=== PATIENT | male | born 1955 | race Caucasian/White ===

== ENCOUNTER 2020-05-24 11:59 | Outpatient (REF) | payer OTHER, SELFPAY ==
[2020-05-24 13:53] LABS: MANUAL DIFF FLAG NO
[2020-05-24 14:00] LABS: Basophils Absolute Auto 0.1 X10*3/uL (0.0-0.2); Basophils Percent Auto 0.7 % (0-2); Eosinophils Absolute Auto 0.2 X10*3/uL (0.0-0.4); Eosinophils Percent Auto 1.9 % (0-4); Hematocrit 44.6 % (42-52); Imm Gran Abs Auto 0.03 X10*3/uL (0.00-0.03); Imm Gran Pct Auto 0.3 % (0.0-0.4); Lymphocytes Absolute Auto 2.1 X10*3/uL (1.2-4.9); Mean Corpuscular HGB Conc 33.6 g/dl (31.0-36.0); Mean Corpuscular Hemoglobin 32.5 pg (27.0-33.0); Mean Corpuscular Volume 96.7 fL (80-98); Mean Platelet Volume 9.7 fL (9.4-12.4); Monocytes Absolute Auto 1.2 X10*3/uL (0.1-1.2); Monocytes Percent Auto 12.7 % (2-11); Neutrophils Percent Auto 62.4 % (45-73); Platelet Count 312 X10*3/uL (160-400); Red Blood Count 4.61 X10*6/uL (4.60-5.80); Red Cell Distribution Width 12.6 % (11.0-16.0); White Blood Count 9.6 X10*3/uL (4.8-10.8)
[2020-05-24 15:19] LABS: Alanine Aminotransferase 24 U/L (0-40); Albumin Level 4.9 g/dL (3.5-5.0); Alkaline Phosphatase 78 U/L (39-117); Anion Gap 16 (12-20); Aspartate Amino Transferase 25 U/L (5-37); Bilirubin Total 0.7 mg/dL (0.0-1.0); Blood Urea Nitrogen 11 mg/dL (9-16); Calcium 9.7 mg/dL (8.4-10.2); Carbon Dioxide 27 mmol/L (22-29); Chloride 101 mmol/L (96-108); Cholesterol 258 mg/dL; Estimated Glomerular Filt Rate > 60; Glucose Fasting 100 mg/dL (60-99); HDL Cholesterol 81 mg/dL; LDL Cholesterol Calculated 154 mg/dl; Potassium 4.9 mmol/l (3.3-5.1); Sodium 139 mmol/L (135-145); Total Protein 8.1 g/dL (6.5-8.0); Triglycerides 119 mg/dL
[2020-05-24 16:16] LABS: Prostate Specific Antigen Scr 5.69 ng/mL (<0.05-4.0)
== END 2020-05-24 12:00 | disposition home or self-care (01) ==
LOC: HO.10HDL 11:59
PROVIDERS: Visit Provider Internal Medicine
DX: J44.9 Chronic obstructive pulmonary disease, unspecified (principal); I10 Essential (primary) hypertension; R35.1 Nocturia; B19.20 Unspecified viral hepatitis C without hepatic coma; Z12.5 Encounter for screening for malignant neoplasm of prostate
CPT/HCPCS: 36415; 80053; 80061; 84153; 85025; 87522; U0003

== ENCOUNTER 2020-06-04 09:50 | Outpatient (REF) | payer OTHER, SELFPAY ==
[2020-06-04 15:03] LABS: Cholesterol 220 mg/dL; HDL Cholesterol 70 mg/dL; LDL Cholesterol Calculated 130 mg/dl; Triglycerides 103 mg/dL
== END 2020-06-04 09:51 | disposition home or self-care (01) ==
LOC: HO.10HDL 09:50
PROVIDERS: Visit Provider Internal Medicine
DX: E78.00 Pure hypercholesterolemia, unspecified (principal)
CPT/HCPCS: 36415; 80061

== ENCOUNTER → 2020-07-09 14:47 | Outpatient (BNVA) | payer OTHER, SELFPAY | PROVIDERS: PCP Internal Medicine; Visit Provider Urology | DX: R97.20 Elevated prostate specific antigen [PSA] (principal); N40.1 Benign prostatic hyperplasia with lower urinary tract symptoms; N13.8 Other obstructive and reflux uropathy | CPT/HCPCS: 99202 ==

== ENCOUNTER 2020-07-26 13:48 | Outpatient (REF) | payer OTHER, SELFPAY ==
[2020-07-26 14:38] LABS: Influenza A PCR NEGATIVE (Negative); Influenza B PCR NEGATIVE (Negative); Resp Syncy Virus RNA Qual PCR NEGATIVE (Negative); SARS COV2 PCR INHOUSE NEGATIVE (Negative)
== END 2020-07-26 13:49 | disposition home or self-care (01) ==
LOC: HO.LNP 13:48
PROVIDERS: Visit Provider Internal Medicine
DX: Z20.822 Contact with and (suspected) exposure to COVID-19 (principal)
CPT/HCPCS: 0241U

== ENCOUNTER 2020-10-30 10:45 | Outpatient (REF) | payer OTHER, SELFPAY ==
[2020-10-30 12:24] LABS: PSA,Total (Free>4and<10) 4.14 ng/mL (0.00-4.00)
[2020-10-31 10:36] LABS: Free Prostate Spec Ag 0.5 ng/mL; Percent Free Prostate Spec Ag 13 % (calc) (>25); Prostate Specific Ag Total 3.8 ng/mL (< OR = 4.0)
== END 2020-10-30 10:46 | disposition home or self-care (01) ==
LOC: HO.LAB 10:45
PROVIDERS: PCP Internal Medicine; Visit Provider Urology
DX: Z12.5 Encounter for screening for malignant neoplasm of prostate (principal); N13.8 Other obstructive and reflux uropathy; N40.1 Benign prostatic hyperplasia with lower urinary tract symptoms; R97.20 Elevated prostate specific antigen [PSA]
CPT/HCPCS: 36415; 84153; 84154

== ENCOUNTER → 2020-11-06 14:42 | Outpatient (BNVA) | payer OTHER, SELFPAY | PROVIDERS: PCP Internal Medicine; Visit Provider Urology | DX: R97.20 Elevated prostate specific antigen [PSA] (principal); N40.1 Benign prostatic hyperplasia with lower urinary tract symptoms; N13.8 Other obstructive and reflux uropathy; I10 Essential (primary) hypertension; I87.8 Other specified disorders of veins | CPT/HCPCS: 99212 ==

== ENCOUNTER 2021-01-27 08:56 | Outpatient (REF) | payer MEDICARE, MEDICAID, SELFPAY ==
[2021-01-27 11:44] LABS: PSA,Total (Free>4and<10) 3.71 ng/mL (0.00-4.00)
== END 2021-01-27 08:57 | disposition home or self-care (01) ==
LOC: HO.10HDL 08:56
PROVIDERS: Visit Provider Urology
DX: R97.20 Elevated prostate specific antigen [PSA] (principal)
CPT/HCPCS: 36415; 84153

== ENCOUNTER 2021-02-26 12:27 | Outpatient (REF) | payer MEDICARE, MEDICAID, SELFPAY ==
[2021-02-26 14:38] LABS: PSA,Total (Free>4and<10) 3.99 ng/mL (0.00-4.00)
== END 2021-02-26 12:28 | disposition home or self-care (01) ==
LOC: HO.10HDL 12:27
PROVIDERS: Visit Provider Urology
DX: R97.20 Elevated prostate specific antigen [PSA] (principal); Z12.5 Encounter for screening for malignant neoplasm of prostate
CPT/HCPCS: 36415; 84153

== ENCOUNTER → 2021-03-05 14:57 | Outpatient (BNVA) | payer OTHER, MEDICAID, SELFPAY | PROVIDERS: Visit Provider Urology | DX: N40.1 Benign prostatic hyperplasia with lower urinary tract symptoms (principal); N13.8 Other obstructive and reflux uropathy; R97.20 Elevated prostate specific antigen [PSA] | CPT/HCPCS: 99212 ==

== ENCOUNTER 2021-09-01 12:46 | Outpatient (REF) | payer MEDICARE, MEDICAID, SELFPAY ==
[2021-09-01 14:25] LABS: PSA,Total (Free>4and<10) 4.24 ng/mL (0.00-4.00)
[2021-09-02 11:07] LABS: Free Prostate Spec Ag 0.9 ng/mL; Percent Free Prostate Spec Ag 20 % (calc) (>25); Prostate Specific Ag Total 4.5 ng/mL (< OR = 4.0)
== END 2021-09-01 12:47 | disposition home or self-care (01) ==
LOC: HO.LAB 12:46
PROVIDERS: PCP Internal Medicine; Visit Provider Urology
DX: Z12.5 Encounter for screening for malignant neoplasm of prostate (principal); N40.1 Benign prostatic hyperplasia with lower urinary tract symptoms; N13.8 Other obstructive and reflux uropathy
CPT/HCPCS: 36415; 84153; 84154

== ENCOUNTER → 2021-09-09 14:59 | Outpatient (BNVA) | payer OTHER, SELFPAY | PROVIDERS: PCP Internal Medicine; Visit Provider Urology | DX: Z13.89 Encounter for screening for other disorder (principal) ==

== ENCOUNTER 2022-03-03 13:29 | Outpatient (REF) | payer MEDICARE, MEDICAID, SELFPAY ==
[2022-03-03 15:24] LABS: PSA,Total (Free>4and<10) 4.14 ng/mL (0.00-4.00)
[2022-03-05 11:07] LABS: Free Prostate Spec Ag 0.2 ng/mL; Percent Free Prostate Spec Ag 10 % (calc) (>25); Prostate Specific Ag Total 2.1 ng/mL (< OR = 4.0)
== END 2022-03-03 13:30 | disposition home or self-care (01) ==
LOC: HO.LAB 13:29
PROVIDERS: PCP Internal Medicine; Visit Provider Urology
DX: Z12.5 Encounter for screening for malignant neoplasm of prostate (principal); N13.8 Other obstructive and reflux uropathy; N40.1 Benign prostatic hyperplasia with lower urinary tract symptoms
CPT/HCPCS: 36415; 84153; 84154

== ENCOUNTER → 2022-03-10 10:45 | Outpatient (BNVA) | payer MEDICARE, MEDICAID, SELFPAY | PROVIDERS: PCP Internal Medicine; Visit Provider Urology | DX: R97.20 Elevated prostate specific antigen [PSA] (principal); N40.1 Benign prostatic hyperplasia with lower urinary tract symptoms; N13.8 Other obstructive and reflux uropathy | CPT/HCPCS: 51798; 99212 ==

== ENCOUNTER 2022-09-02 13:42 | Outpatient (REF) | payer MEDICARE, MEDICAID, SELFPAY ==
[2022-09-02 15:31] LABS: Prostate Specific Antigen 6.28 ng/mL (<0.05-4.0)
== END 2022-09-02 13:43 | disposition home or self-care (01) ==
LOC: HO.LAB 13:42
PROVIDERS: PCP Internal Medicine; Visit Provider Urology
DX: R97.20 Elevated prostate specific antigen [PSA] (principal); Z12.5 Encounter for screening for malignant neoplasm of prostate
CPT/HCPCS: 36415; 84153

== ENCOUNTER → 2022-09-09 14:21 | Outpatient (BNVA) | payer MEDICARE, MEDICAID, SELFPAY | PROVIDERS: PCP Internal Medicine; Visit Provider Urology | DX: N40.1 Benign prostatic hyperplasia with lower urinary tract symptoms (principal); N13.8 Other obstructive and reflux uropathy; R97.20 Elevated prostate specific antigen [PSA] | CPT/HCPCS: 99212 ==

== ENCOUNTER 2022-10-22 07:23 | Outpatient (REF) | payer MEDICARE, MEDICAID, SELFPAY ==
[2022-10-22 07:42] VITALS: BMI 22.4
[2022-10-22 07:43] VITALS: BP 133/80; PULSE 93; RESP 16; TEMP 36.3; O2SAT 99
--- NOTE | 2022-10-22 08:33 | W.PM.OPN ---
Operative Note Operative Note Date of Service: 10/22/22 Narrative: Preoperative diagnosis: Elevated PSA Postoperative diagnosis: Elevated PSA Procedure: 1. transrectal ultrasound measurement of prostate 2. transrectal ultrasound-guided pudendal nerve block 3. transrectal ultrasound-guided prostate biopsy 12 core Surgeon: Dr. Noble Polk Anesthetic: Local Indications for procedure: Elevated PSA 6.2 Procedure: After informed consent was verified, the patient was brought into the procedure area and lay left-hand side down on the table. Patient identity confirmed. Perioperative antibiotics confirmed. Safety pause time out performed. OMAYRA performed to dilate rectal sphincter Iodine 10cc with Gel was placed per rectum Ultrasound probe was placed per rectum The prostate was measured in 3 dimensions Total volume equals 25 gm No cystic structures were noted No calcifications were noted at the surgical margin The prostate was otherwise homogeneous in nature An ultrasound-guided pudendal nerve block was performed using 10 cc of 1% lidocaine. 8 cc was placed at the base and 2 cc of the apex. A 12 core biopsy was performed with 6 cores each side. Two cores were taken at the apex, mid and base. Cores were spaced between lateral and medial. He tolerated the procedure well. Was able to ambulate to bathroom after 5 minutes. Printed instructions regarding antibiotic use and common side effects such as low-grade temperature, potential infection and bleeding were given Pathology: 12 core prostate biopsy.
[2022-10-22 08:35] VITALS: BP 137/73; PULSE 96; RESP 16; O2SAT 100
== END 2022-10-22 07:24 | disposition home or self-care (01) ==
LOC: HO.MS 07:23
PROVIDERS: Visit Provider Urology
PROC: (CPT 55700; principal; 2022-10-22 08:00)
DX: C61 Malignant neoplasm of prostate (principal); N42.32 Atypical small acinar proliferation of prostate; R97.20 Elevated prostate specific antigen [PSA]
CPT/HCPCS: 55700; 76942; 88305; 88344

== ENCOUNTER → 2022-10-30 09:19 | Outpatient (BNVA) | payer MEDICARE, MEDICAID, SELFPAY | PROVIDERS: PCP Internal Medicine; Visit Provider Urology | DX: C61 Malignant neoplasm of prostate (principal) | CPT/HCPCS: Q3014 ==

== ENCOUNTER 2022-11-30 15:11 | Emergency (ER) | payer MEDICARE, MEDICAID, SELFPAY ==
[2022-11-30 15:17] VITALS: BP 142/64; PULSE 68; O2SAT 97
[2022-11-30 16:27] VITALS: BP 152/93; PULSE 112; RESP 20; TEMP 36.6; O2SAT 96; BMI 22.4
--- NOTE | 2022-11-30 16:30 | ECG_ITS ---
Test Reason : SYNCOPE Blood Pressure : / mmHG Vent. Rate : 110 BPM Atrial Rate : 110 BPM P-R Int : 136 ms QRS Dur : 076 ms QT Int : 324 ms P-R-T Axes : 000 013 022 degrees QTc Int : 438 ms Sinus tachycardia Otherwise normal ECG When compared with ECG of 17-JAN-2005 09:13, Nonspecific T wave abnormality no longer evident in Lateral leads Referred By: Generic ED Physician Electronically Signed By:Jesús Dubon
--- NOTE | 2022-11-30 16:33 | ED_ITS ---
HPI - General Adult General Chief complaint: Dizziness Stated complaint: mechanical fall, no headstrike, per ems Related Data Home Medications Medication Instructions Recorded Confirmed lisinopril 20 mg tablet 20 mg PO DAILY 07/09/20 omeprazole 20 mg capsule,delayed mg PO 03/05/22 03/10/22 release Previous Rx's Medication Instructions Recorded finasteride 5 mg tablet 5 mg PO DAILY 90 days #90 tabs 06/26/22 Allergies Allergy/AdvReac Type Severity Reaction Status Date / Time No Known Allergies Allergy Verified 10/30/22 09:19 [facility] Past Medical History Medical History Cellulitis HTN (hypertension) Venous stasis ulcer of ankle Surgical History History of appendectomy History of colonoscopy Social History Social History Advance Directives: No Advance Directives Information Provided: Yes Physical Exam ED Vital Signs: Vital Signs - 24 hr 11/30/22 16:27 Temperature 98 F Pulse Rate 112 H Respiratory Rate 20 Blood Pressure 152/93 H Pulse Oximetry 96 Oxygen Delivery Method Room Air BMI result Body Mass Index 22.4 Course Course Course Narrative: This is an RME: Additional HPI, ROS, PE not included below will be deferred to primary provider. 66-year-old male presenting to the emergency department via EMS, presenting to the ER for evaluation of presyncopal episode. Pt received shingles shot this morning, and believes that this is what caused his symptoms. Mildly hypertensive at 152/93 and tachycardic at 112bpm, EKG ordered. Pt eloped just after getting EKG performed, prior to full evaluation by me or primary provider. Medical Decision Making Lab Data 11/30/22 16:52 11/30/22 16:52 Labs: Lab Results 11/30/22 11/30/22 11/30/22 Range/Units 16:52 16:52 16:52 WBC 13.0 H (4.8-10.8) X10*3/uL RBC 4.29 L (4.60-5.80) X10*6/uL Hgb 14.3 (14.0-18.0) g/dl Hct 41.0 L (42.0-52.0) % MCV 95.6 (80.0-98.0) fL MCH 33.3 H (27.0-33.0) pg MCHC 34.9 (31.0-36.0) g/dl RDW 13.1 (11.0-16.0) % Plt Count 240 (160-400) X10*3/uL MPV 8.9 L (9.4-12.4) fL Absolute Nucleated RBC 0.000 (0.0-0.012) X10*3/uL Nucleated RBC % (auto) 0.0 (0.0-0.2) /100WBC Sodium 136 (135-145) mmol/L Potassium 4.9 (3.3-5.1) mmol/L Chloride 103 (96-108) mmol/L Carbon Dioxide 19 L (22-29) mmol/L Anion Gap 19 (12-20) BUN 13 (9-16) mg/dL Creatinine 1.21 (0.5-1.4) mg/dL Estim Creat Clear Calc 63.5 Estimated GFR 60 Random Glucose 128 H (60-115) mg/dL Calcium 9.1 D (8.4-10.2) mg/dL Total Bilirubin 0.7 (0.0-1.0) mg/dL AST 51 H (5-37) U/L ALT 29 (0-40) U/L Alkaline Phosphatase 65 (39-117) U/L Troponin I High Sens 5.5 (<3.5-35.0) ng/L Total Protein 7.6 (6.5-8.0) g/dL Albumin 4.4 (3.5-5.0) g/dL Discharge Plan Discharge Clinical Impression: Pre-syncope Patient Disposition: Elopement Prescriptions: No Action finasteride 5 mg tablet 5 mg PO DAILY 90 Days Qty: 90 1RF lisinopril 20 mg tablet 20 mg PO DAILY omeprazole 20 mg capsule,delayed release(DR/EC) PO Discharge Date/Time: 11/30/22 22:35
[2022-11-30 17:03] LABS: Hemoglobin 14.3 g/dl (14.0-18.0); Mean Corpuscular HGB Conc 34.9 g/dl (31.0-36.0); Mean Corpuscular Hemoglobin 33.3 pg (27.0-33.0); Mean Corpuscular Volume 95.6 fL (80.0-98.0); Mean Platelet Volume 8.9 fL (9.4-12.4); Platelet Count 240 X10*3/uL (160-400); Red Blood Count 4.29 X10*6/uL (4.60-5.80); Red Cell Distribution Width 13.1 % (11.0-16.0)
[2022-11-30 17:31] LABS: Alanine Aminotransferase 29 U/L (0-40); Albumin Level 4.4 g/dL (3.5-5.0); Alkaline Phosphatase 65 U/L (39-117); Anion Gap 19 (12-20); Aspartate Amino Transferase 51 U/L (5-37); Bilirubin Total 0.7 mg/dL (0.0-1.0); Blood Urea Nitrogen 13 mg/dL (9-16); Calcium 9.1 mg/dL (8.4-10.2); Carbon Dioxide 19 mmol/L (22-29); Chloride 103 mmol/L (96-108); Creatinine Clr Calc Pharmacy 63.5; Estimated Glomerular Filt Rate 60; Glucose Random 128 mg/dL (60-115); Potassium 4.9 mmol/L (3.3-5.1); Sodium 136 mmol/L (135-145); Total Protein 7.6 g/dL (6.5-8.0)
[2022-11-30 17:38] LABS: Troponin-I High Sensitivity 5.5 ng/L (<3.5-35.0)
== END 2022-11-30 22:35 | disposition left against medical advice (07) ==
PROVIDERS: Emergency Provider Emergency Medicine; PCP Internal Medicine
DX: R55 Syncope and collapse (principal); I10 Essential (primary) hypertension
CPT/HCPCS: 36415; 80053; 84484; 85027; 93005; 99283

== ENCOUNTER → 2022-11-30 16:30 | Outpatient (BNV) | payer MEDICARE, MEDICAID, SELFPAY | PROVIDERS: Emergency Provider Emergency Medicine; PCP Internal Medicine; Visit Provider Internal Medicine Cardiovascular Disease | DX: R00.0 Tachycardia, unspecified (principal) | CPT/HCPCS: 93010 ==

== ENCOUNTER 2023-01-14 11:03 | Outpatient (AMB) | payer MEDICARE, MEDICAID, SELFPAY ==
--- NOTE | 2023-01-14 11:04 | MHC.OFFVIS ---
Intake Intake Visit Reasons: MRI (SET) Intake Note: Patient is present for Telephone MRI Urology Med: Finasteride Antibiotic Allergy: None Blood Thinner: None Pharmacy: [facility] Allergies No Known Allergies Allergy (Verified 10/30/22 09:19) HPI HPI Comments History of Present Illness Details Hi is a pleasant male. He is a patient of Dr. Mckeon. 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, low volume, clinically localized Prostate cancer was diagnosed Dr Polk Diagnosis was reached by - needle biopsy for elevated PSA 6.2 - 25 g 12 Core biopsy Positive Biopsies: 3 Negative Biopsies: 9 - (%) Positive: 100/1200 Locations:Battiest score: 3+4=7 (left base lateral) 20%, 3+3=6 (right apex lateral 30%; right apex medial 50%) Associated Features: LVI: RIK: Seminal Vesicles: - all negative TNM Classification of Malignant Tumours (TNM) - T1c Staging Imaging - 12/06 MRI 1.4 cm PI-RADS 2, no high risk disease Family History: Adopted unknown Associated conditions include lower urinary tract symptoms Therapeutic plan: Finasteride, 4 month follow-up PSA [facility] Medical History Cellulitis HTN (hypertension) Venous stasis ulcer of ankle Surgical History History of appendectomy History of colonoscopy Review of Systems Const All systems reviewed & are unremarkable except as noted in HPI and below Reports no additional complaints Resp Reports no additional complaints GI Reports no additional complaints Reports as per HPI Musc Reports no additional complaints Physical Exam Telemedicine evaluation Appropriate responses Regular breathing rate and rhythm HEENT Head: Yes normal to inspection Ears: hearing grossly normal bilaterally Eyes General: appearance normal, both eyes and all related structures Neck Neck: Yes normal visual inspection Chest Chest palpation & inspection: normal inspection of the chest Resp Effort & Inspection: normal respiratory effort and able to speak in complete sentences Assessment & Plan Assessment & Plan (1) Prostate cancer: Comment: 11/06 Low volume Battiest 3 + 4 Code(s): C61 - Malignant neoplasm of prostate Plan Four month follow-up PSA Orders: Orders Prostate Specific Antigen 4 Months C61 - Malignant neoplasm of prostate Patient Instructions: Imaging studies, laboratory and physical exam results were discussed and reviewed in detail. No major barriers to patient understanding were identified. An opportunity to ask questions regarding the treatment plan was provided. All questions were answered. The patient expressed understanding and agreement with the above treatment plan. The patient is aware they should contact our office by phone for worsening of their current condition or the appearance of new urologic symptoms. Compliance is encouraged with any medications and followup testing that is ordered. It is a privilege to participate in the urologic care of your patient. If you have any questions or concerns regarding treatment for the above conditions, or other urologic issues, please do not hesitate to contact me. The office telephone contact is [phone]. This note is constructed using voice recognition software. While every effort has been made to ensure accuracy hot tamale man errors may have been included. Yours sincerely, Dr Noble Polk MD, [facility] - Urology Providers of Expert, Compassionate Care for the Genitourinary System Telehealth Telehealth Location of provider rendering services: practice address Location of patient: address on file Patient Identification confirmed using: Name, : Yes Telehealth method: video Patient verbally consented to treatment: Yes Patient verbally consented to billing insurance company: Yes Patient informed of any privacy concerns related to visit: Yes Coding Level of Care Code Tele Est Pt Level 3 (55480) Diagnoses Prostate cancer C61
== END 2023-01-14 11:37 | disposition home or self-care (01) ==
LOC: HO.HUSH 11:03
PROVIDERS: PCP Internal Medicine; Visit Provider Urology
DX: C61 Malignant neoplasm of prostate (principal)
CPT/HCPCS: 99213

== ENCOUNTER → 2023-01-14 11:03 | Outpatient (BNVA) | payer MEDICARE, MEDICAID, SELFPAY | PROVIDERS: PCP Internal Medicine; Visit Provider Urology | DX: C61 Malignant neoplasm of prostate (principal) | CPT/HCPCS: Q3014 ==

== ENCOUNTER 2023-04-10 17:10 | Emergency (ER) | payer MEDICARE, SELFPAY ==
--- NOTE | ~2023-04-10 | CT_ITS ---
EXAMINATION: CT HEAD WITHOUT CONTRAST CLINICAL INFORMATION: Headache status-post fall. COMPARISON: None available. TECHNIQUE: Contiguous axial imaging was performed from the skull base to vertex without intravenous administration of contrast. Multiplanar reformatted images are submitted. This CT examination was performed using dose optimization techniques as appropriate, variously including the following: *Automated exposure control *Adjustment of mA and/or kV according to patient size (this includes techniques or standardized protocols for targeted exams where dose is matched to indication/reason for exam; i.e. extremities or head) *Use of iterative reconstruction technique DLP: 1056 mGy-cm (head and cervical spine) FINDINGS: There is no acute intracranial hemorrhage or evidence of territorial infarction. No abnormal mass effect or midline shift is seen. Hannah to white matter differentiation is well preserved. There is very mild patchy low attenuation change in the periventricular white matter spaces. There are atherosclerotic calcifications of the skull base vasculature. The ventricles are normal in size. There is mild generalized sulcal widening, commensurate with advanced age. No extra-axial fluid collections are identified. The calvarium and scalp soft tissues are normal. The middle ear cavity and mastoid air cells are clear. The visualized paranasal sinuses are clear. CT/CT cervical spine wo IV con IMPRESSION: No acute intracranial pathology. EXAMINATION: CT CERVICAL SPINE WITHOUT CONTRAST CLINICAL INFORMATION: Neck pain status-post fall. COMPARISON: None available. TECHNIQUE: Contiguous axial imaging was performed through the cervical spine without intravenous administration of contrast. Multiplanar reformatted images are submitted. This CT examination was performed using dose optimization techniques as appropriate, variously including the following: *Automated exposure control *Adjustment of mA and/or kV according to patient size (this includes techniques or standardized protocols for targeted exams where dose is matched to indication/reason for exam; i.e. extremities or head) *Use of iterative reconstruction technique DLP: As above FINDINGS: Vertebral body heights are normal. At C4-C5 through C7-T1, there is moderately severe degenerative disc disease, with disc space narrowing and vacuum disc phenomenon. No acute fracture or spondylolisthesis is seen. There is multi-level cervical spondylosis and facet arthropathy. The posterior elements are intact. The dens is intact. There is no prevertebral soft tissue swelling. The bilateral lung apices are clear. There are paraseptal emphysematous changes. IMPRESSION: There is multi-level cervical and degenerative disc disease, spondylosis and facet arthropathy. Degenerative disc disease is most pronounced at C4-C5 through C7-T1, where it is marked. No acute fracture or spondylolisthesis is seen. Fleischner guidelines were followed.
[2023-04-10 18:04] VITALS: BP 142/70; BP 142/91; PULSE 101; PULSE 103; RESP 18; TEMP 36.6; O2SAT 100; O2SAT 98; BMI 23.1
--- NOTE | 2023-04-10 18:40 | PC.NURSE ---
Spoke with patient SO and she is concerned about the patient coming home tonight due to patient patient's recent heavy drinking and the fact that he fell yesterday as well as today. SO states that recently the patient has been drinking 15-16 drinks a day and she feels that she would not be able to get him off the ground if he were to fall again. SO also states that Patient took one of her lorazepam on top of drinking tonight. So is also asked to be called if patient is to be staying overnight tonight.
[2023-04-10 19:14] LABS: MANUAL DIFF FLAG NO
[2023-04-10 19:16] LABS: Basophils Absolute Auto 0.1 X10*3/uL (0.0-0.2); Basophils Percent Auto 0.9 % (0-2); Eosinophils Absolute Auto 0.1 X10*3/uL (0.0-0.4); Eosinophils Percent Auto 1.9 % (0-4); Hematocrit 34.7 % (42.0-52.0); Imm Gran Abs Auto 0.01 X10*3/uL (0.00-0.03); Imm Gran Pct Auto 0.2 % (0.0-0.4); Lymphocytes Absolute Auto 1.9 X10*3/uL (1.2-4.9); Lymphocytes Percent Auto 36.2 % (20-40); Mean Corpuscular HGB Conc 34.6 g/dl (31.0-36.0); Mean Corpuscular Hemoglobin 33.1 pg (27.0-33.0); Mean Corpuscular Volume 95.6 fL (80.0-98.0); Mean Platelet Volume 8.6 fL (9.4-12.4); Monocytes Absolute Auto 0.8 X10*3/uL (0.1-1.2); Monocytes Percent Auto 14.6 % (2-11); Neutrophils Absolute Auto 2.4 x10*3/uL (2.0-8.3); Neutrophils Percent Auto 46.2 % (45-73); Platelet Count 162 X10*3/uL (160-400); Red Blood Count 3.63 X10*6/uL (4.60-5.80); White Blood Count 5.3 X10*3/uL (4.8-10.8)
[2023-04-10 19:30] LABS: Alanine Aminotransferase 77 U/L (0-40); Albumin Level 3.9 g/dL (3.5-5.0); Alkaline Phosphatase 60 U/L (39-117); Anion Gap 13 (12-20); Aspartate Amino Transferase 117 U/L (5-37); Bilirubin Direct 0.2 mg/dL (0.0-0.5); Bilirubin Total 0.2 mg/dL (0.0-1.0); Blood Urea Nitrogen 5 mg/dL (9-16); Calcium 8.7 mg/dL (8.4-10.2); Carbon Dioxide 23 mmol/L (22-29); Chloride 106 mmol/L (96-108); Creatinine Clr Calc Pharmacy 95.3; Estimated Glomerular Filt Rate > 60; Ethanol 287 mg/dL; Glucose Random 87 mg/dL (60-115); Lipase 46 U/L (8-78); Potassium 4.1 mmol/L (3.3-5.1); Sodium 138 mmol/L (135-145); Total Protein 6.8 g/dL (6.5-8.0)
--- NOTE | 2023-04-10 20:23 | ED.GENADULT ---
HPI - General Adult General Chief complaint: Fall Stated complaint: Fall, ETOH Time Seen by Provider: 04/10/23 19:59 Source: patient Mode of arrival: EMS Limitations: altered mental status (due to alcohol intoxication) History of Present Illness HPI narrative: Pt is a 67yo male who presents to the ED after falling at home. Pt is intoxicated and states he had as many beers as he could . Pt notes daily drinking of approx 12 beers/day. Denies a hx of severe withdrawals. States that he doesn't know how he fell but denies injury or hitting his head/LOC. Denies any physical sx, headaches, or vision changes. Patient arrives in a C-collar Related Data Home Medications Medication Instructions Recorded Confirmed lisinopril 20 mg tablet 20 mg PO DAILY 07/09/20 omeprazole 20 mg capsule,delayed mg PO 03/05/22 03/10/22 release Previous Rx's Medication Instructions Recorded finasteride 5 mg tablet 5 mg PO DAILY 90 days #90 tabs 12/17/22 Allergies Allergy/AdvReac Type Severity Reaction Status Date / Time No Known Allergies Allergy Verified 10/30/22 09:19 Review of Systems Constitutional: Constitutional: Denies fever(s), Denies headache(s) and Denies weakness Eyes: Eyes: Denies change in vision and Denies loss of vision ENT: Denies dizziness, Denies headache(s) and Denies neck pain Cardiovascular: Cardiovascular: Denies chest pain, Denies lightheadedness and Denies dyspnea Respiratory: Respiratory: Denies cough and Denies dyspnea Gastrointestinal: Gastrointestinal: Denies abdominal pain, Denies constipation, Denies diarrhea, Denies nausea and Denies vomiting Musculoskeletal: Musculoskeletal: Denies back pain, Denies neck pain and Denies numbness Neurologic: Denies confusion, Denies dizziness, Denies headache(s), Denies loss of vision, Denies numbness and Denies weakness Psychiatric: Psychiatric: Denies confusion PMFSH Past Medical History Medical History Cellulitis HTN (hypertension) Venous stasis ulcer of ankle Surgical History History of appendectomy History of colonoscopy Social History Alcohol intake: current Alcohol intake frequency: 0-2 drinks per day Alcohol type: beer Smoked in Last 30 Days: Yes Use of substances other than those prescribed or required for medical reasons: Yes Substance Use Type: Marijuana Advance Directives: No Advance Directives Information Provided: No Physical Exam ED Vital Signs: Vital Signs - 24 hr 04/10/23 18:04 04/10/23 22:03 Temperature 97.8 F 98.0 F Pulse Rate 101 H 91 Respiratory Rate 18 12 Blood Pressure 142/91 H 150/85 H Pulse Oximetry 98 98 Oxygen Delivery Method Room Air Room Air BMI result Body Mass Index 23.1 Const General: cooperative, comfortable and no acute distress; No confusion Orientation/consciousness: oriented to person, oriented to place, No oriented to time and No confusion Limitations: altered mental status (secondary to alcohol intox) HENMT Head: Yes normocephalic and Yes atraumatic Ears: hearing grossly normal bilaterally General nose exam: Normal external nose present Mouth: Normal oral and palatal mucosa present Eyes General: appearance normal, both eyes and all related structures Conjunctivae: conjunctivae normal Sclerae: sclerae normal Pupils: Equal, round and reactive pupils present EOM: EOMs intact bilaterally Direct Ophthalmoscopy: normal light reflex Resp Effort & Inspection: normal respiratory effort Auscultation: clear to auscultation bilaterally Cardio Rate: regular rate Rhythm: regular rhythm Heart sounds: S1 normal heart sound present and S2 normal heart sound present GI Palpation (GI): nontender Back/Spine/Pelvis Cervical Spine: collar present Thoracic/Lumbar Spine: thoraco-lumbar ROM normal Neuro General: oriented to person, oriented to place, No oriented to time and No confusion Cranial nerves: Yes CN's II-XII intact bilaterally and Yes Equal, round and reactive pupils present Motor exam (neuro): 5/5 motor strength present throughout Course Reevaluation(s) Reevaluation #1: C-spine cleared with imaging. There is no traumatic injuries. The patient has been ambulatory with a steady, even gait. He is calling to find a sober ride home and he can be discharged safely with a sober ride Time: 23:26 Medical Decision Making Medical Decision Making MDM Narrative: Cannot clear patient's C-spine with nexus criteria due to alcohol intoxication. Plan for CT imaging of the brain and cervical spine. Patient has no complaints at this time. He is resting comfortably with stable vitals Differential Diagnosis Differential Diagnoses: The differential diagnosis associated with the presentation includes (etoh related fall w/o injury, concussion, vertebral fracture, vasovagal syncope, vertigo) Lab Data MDM Lab Attestation statement: I reviewed the patient's lab results. No leukocytosis, a mild anemia no significant electrolyte abnormalities. Very mild transaminitis which is likely related to alcohol abuse 04/10/23 19:11 04/10/23 19:11 Labs: Lab Results 04/10/23 Range/Units 19:11 WBC 5.3 (4.8-10.8) X10*3/uL RBC 3.63 L (4.60-5.80) X10*6/uL Hgb 12.0 L (14.0-18.0) g/dl Hct 34.7 L (42.0-52.0) % MCV 95.6 (80.0-98.0) fL MCH 33.1 H (27.0-33.0) pg MCHC 34.6 (31.0-36.0) g/dl RDW 14.0 (11.0-16.0) % Plt Count 162 D (160-400) X10*3/uL MPV 8.6 L (9.4-12.4) fL Immature Gran % (Auto) 0.2 (0.0-0.4) % Neut % (Auto) 46.2 (45-73) % Lymph % (Auto) 36.2 (20-40) % [place] % (Auto) 14.6 H (2-11) % Eos % (Auto) 1.9 (0-4) % Baso % (Auto) 0.9 (0-2) % Lymph # (Auto) 1.9 (1.2-4.9) X10*3/uL [place] # (Auto) 0.8 (0.1-1.2) X10*3/uL Eos # (Auto) 0.1 (0.0-0.4) X10*3/uL Baso # (Auto) 0.1 (0.0-0.2) X10*3/uL Abs Immat Gran (auto) 0.01 (0.00-0.03) X10*3/uL Absolute Neuts (auto) 2.4 (2.0-8.3) x10*3/uL Absolute Nucleated RBC 0.000 (0.0-0.012) X10*3/uL Nucleated RBC % (auto) 0.0 (0.0-0.2) /100WBC Sodium 138 (135-145) mmol/L Potassium 4.1 (3.3-5.1) mmol/L Chloride 106 (96-108) mmol/L Carbon Dioxide 23 (22-29) mmol/L Anion Gap 13 (12-20) BUN 5 L (9-16) mg/dL Creatinine 0.82 (0.5-1.4) mg/dL Estim Creat Clear Calc 95.3 Estimated GFR > 60 Random Glucose 87 (60-115) mg/dL Calcium 8.7 (8.4-10.2) mg/dL Total Bilirubin 0.2 (0.0-1.0) mg/dL Direct Bilirubin 0.2 (0.0-0.5) mg/dL AST 117 H (5-37) U/L ALT 77 H (0-40) U/L Alkaline Phosphatase 60 (39-117) U/L Total Protein 6.8 (6.5-8.0) g/dL Albumin 3.9 (3.5-5.0) g/dL Lipase 46 (8-78) U/L Ethyl Alcohol 287 mg/dL Radiology Impression Discussion of test interpretation with radiology: I have reviewed the radiologist's reading. (CT cervical spine shows no acute fracture or subluxation,) Radiologist Impression: CT brain shows no acute intracranial pathology Discharge Plan Discharge Clinical Impression: Alcohol abuse, Fall Patient Disposition: Home, Self-Care Instructions: Abuse of Alcohol (ED) Additional Instructions: Avoid excessive consumption of alcohol. Your scans did not show any traumatic injury Prescriptions: No Action finasteride 5 mg tablet 5 mg PO DAILY 90 Days Qty: 90 1RF lisinopril 20 mg tablet 20 mg PO DAILY omeprazole 20 mg capsule,delayed release(DR/EC) PO
[2023-04-10 22:03] VITALS: BP 150/85; PULSE 91; RESP 12; TEMP 36.7; O2SAT 98
== END 2023-04-10 23:54 | disposition home or self-care (01) ==
PROVIDERS: Emergency Provider Emergency Medicine Emergency Medical Services; PCP Internal Medicine
DX: F10.10 Alcohol abuse, uncomplicated (principal); Y90.8 Blood alcohol level of 240 mg/100 ml or more; Z91.81 History of falling; C61 Malignant neoplasm of prostate; I10 Essential (primary) hypertension; Z79.899 Other long term (current) drug therapy
CPT/HCPCS: 36415; 70450; 72125; 80048; 80076; 80307; 83690; 85025; 99284

== ENCOUNTER 2023-07-15 10:32 | Outpatient (REF) | payer MEDICARE, SELFPAY ==
[2023-07-15 10:54] LABS: MANUAL DIFF FLAG NO
[2023-07-15 11:22] LABS: Basophils Percent Auto 0.4 % (0-2); Eosinophils Absolute Auto 0.2 X10*3/uL (0.0-0.4); Hemoglobin 12.9 g/dl (14.0-18.0); Imm Gran Abs Auto 0.02 X10*3/uL (0.00-0.03); Imm Gran Pct Auto 0.2 % (0.0-0.4); Lymphocytes Absolute Auto 1.9 X10*3/uL (1.2-4.9); Lymphocytes Percent Auto 21.7 % (20-40); Mean Corpuscular HGB Conc 33.9 g/dl (31.0-36.0); Mean Corpuscular Volume 94.3 fL (80.0-98.0); Mean Platelet Volume 8.8 fL (9.4-12.4); Monocytes Absolute Auto 1.1 X10*3/uL (0.1-1.2); Monocytes Percent Auto 12.5 % (2-11); Neutrophils Absolute Auto 5.6 x10*3/uL (2.0-8.3); Neutrophils Percent Auto 63.2 % (45-73); Platelet Count 288 X10*3/uL (160-400); Red Blood Count 4.03 X10*6/uL (4.60-5.80); Red Cell Distribution Width 13.4 % (11.0-16.0); White Blood Count 8.9 X10*3/uL (4.8-10.8)
[2023-07-15 11:46] LABS: Alanine Aminotransferase 12 U/L (0-40); Albumin Level 4.2 g/dL (3.5-5.0); Alkaline Phosphatase 66 U/L (39-117); Anion Gap 12 (12-20); Aspartate Amino Transferase 24 U/L (5-37); Bilirubin Total 0.9 mg/dL (0.0-1.0); Blood Urea Nitrogen 10 mg/dL (9-16); Calcium 9.4 mg/dL (8.4-10.2); Carbon Dioxide 27 mmol/L (22-29); Chloride 105 mmol/L (96-108); Cholesterol 203 mg/dL (<200); Estimated Glomerular Filt Rate > 60; Glucose Fasting 96 mg/dL (60-99); HDL Cholesterol 93 mg/dL (>40); LDL Cholesterol Calculated 101 mg/dL (<100); Sodium 139 mmol/L (135-145); Total Protein 7.5 g/dL (6.5-8.0); Triglycerides 48 mg/dL (<150)
[2023-07-15 12:22] LABS: Vitamin B12 239 pg/mL (200-900)
[2023-07-18 08:48] LABS: HCV Log PCR <1.18 NOT DETECTED Log IU/mL (NOT DETECTED); HepC Viral Load <15 NOT DETECTED IU/mL (NOT DETECTED)
== END 2023-07-15 10:33 | disposition home or self-care (01) ==
LOC: HO.LAB 10:32
PROVIDERS: Visit Provider Internal Medicine
DX: J44.9 Chronic obstructive pulmonary disease, unspecified (principal); I10 Essential (primary) hypertension; E78.00 Pure hypercholesterolemia, unspecified; K21.9 Gastro-esophageal reflux disease without esophagitis; Z87.898 Personal history of other specified conditions
CPT/HCPCS: 36415; 80053; 80061; 82607; 85025; 87522

== ENCOUNTER 2023-07-19 14:24 | Outpatient (REF) | payer MEDICARE, SELFPAY ==
[2023-07-19 15:47] LABS: Blood Urea Nitrogen 10 mg/dL (9-16); Estimated Glomerular Filt Rate > 60
[2023-07-19 15:52] LABS: Prostate Specific Antigen 5.21 ng/mL (<0.05-4.0)
== END 2023-07-19 14:25 | disposition home or self-care (01) ==
LOC: HO.LAB 14:24
PROVIDERS: PCP Internal Medicine; Visit Provider Urology
DX: Z12.5 Encounter for screening for malignant neoplasm of prostate (principal); C61 Malignant neoplasm of prostate
CPT/HCPCS: 36415; 82565; 84153; 84520

== ENCOUNTER 2023-07-23 14:31 | Outpatient (AMB) | payer MEDICARE, SELFPAY ==
--- NOTE | 2023-07-23 14:52 | MHC.OFFVIS ---
Intake Intake Visit Reasons: PSA Follow Up(set)Confirmed Intake Note: Patient presents today for a follow-up ON PSA Meds- Finasteride Allergies to Antibiotic- No Known Allergies Blood Thinner- None Post Void Residual: 191ml Patient Symptoms: Patient PVR was 191 ml before and after patient went to the bathroom. [employer] Consultant Required: No Accompanied by: Allergies No Known Allergies Allergy (Verified 07/23/23 14:54) Medication List - Last Reconciled 07/23/23 by Noble Polk MD finasteride 5 mg PO DAILY 90 days lisinopril 20 mg PO DAILY omeprazole mg PO HPI HPI Comments History of Present Illness Details Hi is a pleasant male. He is a patient of Dr. Mckeon. He is seen for the following urologic issues - elevated PSA - lower urinary tract symptoms PVR 190 PSA drop from 6.2 - 08/07 5.2 Six-month follow-up PSA MRI - low risk disease Prostate cancer - 11/06 - Grade Group 2, low volume Adenocarcinoma of the prostate grade group 2, low volume, clinically localized Prostate cancer was diagnosed Dr Polk Diagnosis was reached by - needle biopsy for elevated PSA 6.2 - 25 g 12 Core biopsy Positive Biopsies: 3 Negative Biopsies: 9 - (%) Positive: 100/1200 Locations:[place] score: 3+4=7 (left base lateral) 20%, 3+3=6 (right apex lateral 30%; right apex medial 50%) Associated Features: LVI: RIK: Seminal Vesicles: - all negative TNM Classification of Malignant Tumours (TNM) - T1c Staging Imaging - 12/06 MRI 1.4 cm PI-RADS 2, no high risk disease Family History: Adopted unknown Associated conditions include lower urinary tract symptoms PFSH Medical History Cellulitis HTN (hypertension) Venous stasis ulcer of ankle Surgical History History of appendectomy History of colonoscopy Social History Alcohol intake: current Alcohol intake frequency: 0-2 drinks per day Alcohol type: beer Substance Use Type: Marijuana Review of Systems Const Denies chills and Denies fever(s) Card Reports no additional complaints and Denies syncope Resp Denies cough GI Denies abdominal pain and Denies heartburn Reports as per HPI and Denies change in libido Neuro Denies syncope Psych Denies change in libido Endo Denies change in libido Physical Exam Const General: cooperative, healthy appearing, comfortable and no acute distress Orientation/consciousness: patient oriented x3 HEENT Face and sinus: Yes normal facial exam Mouth: moist mucous membranes Neck Neck: Yes normal visual inspection, Yes full ROM and Yes trachea midline Chest Chest palpation & inspection: normal inspection of the chest Resp Effort & Inspection: normal respiratory effort, able to speak in complete sentences and no respiratory distress GI Inspection: Yes normal to inspection Back/Spine/Pelvis Cervical Spine: normal cervical lordosis Thoracic/Lumbar Spine: thoracic and lumbar spine normal to inspection Skin General skin exam: no rashes or lesions noted Neuro General: patient oriented x3, gait normal, tone normal and moves all extremities Extrem General: Yes normal to inspection and Yes capillary refill normal Office Procedures Post Void Residual Post Residual Void Post Void Residual (PVR): 191 [id number] Void Residual by ultrasound Assessment & Plan Assessment & Plan (1) Prostate cancer: Comment: 11/06 Low volume [place] 3 + 4 Code(s): C61 - Malignant neoplasm of prostate Plan Six-month follow-up PSA Orders: Orders AMB Post Void Residual by ultrasound Today R33.9 - Retention of urine, unspecified Medications: Refilled finasteride 5 mg PO DAILY 90 tabs 1RF 90 days N40.1 - Benign prostatic hyperplasia with lower urinary tract symptoms, R33.9 - Retention of urine, unspecified, R97.20 - Elevated prostate specific antigen [PSA] Patient Instructions: Imaging studies, laboratory and physical exam results were discussed and reviewed in detail. No major barriers to patient understanding were identified. An opportunity to ask questions regarding the treatment plan was provided. All questions were answered. The patient expressed understanding and agreement with the above treatment plan. The patient is aware they should contact our office by phone for worsening of their current condition or the appearance of new urologic symptoms. Compliance is encouraged with any medications and followup testing that is ordered. It is a privilege to participate in the urologic care of your patient. If you have any questions or concerns regarding treatment for the above conditions, or other urologic issues, please do not hesitate to contact me. The office telephone contact is [phone]. This note is constructed using voice recognition software. While every effort has been made to ensure accuracy powder coater errors may have been included. Yours sincerely, Dr Noble Polk MD, [facility] - Urology Providers of Expert, Compassionate Care for the Genitourinary System Coding Level of Care Code Est Pt Level 3 (03617) Diagnoses Prostate cancer C61 CPT Codes Post Residual Void - PVR CPT Code: 11495-Nerc Void Residual by ultrasound ([id number])
== END 2023-07-23 15:06 | disposition home or self-care (01) ==
LOC: HO.HUSH 14:32
PROVIDERS: PCP Internal Medicine; Visit Provider Urology
DX: C61 Malignant neoplasm of prostate (principal)
CPT/HCPCS: 99213

== ENCOUNTER → 2023-07-23 14:31 | Outpatient (BNVA) | payer MEDICARE, SELFPAY | PROVIDERS: PCP Internal Medicine; Visit Provider Urology | DX: C61 Malignant neoplasm of prostate (principal) | CPT/HCPCS: 51798; 99212 ==

== ENCOUNTER 2024-01-10 19:02 | Emergency (ER) | payer MEDICARE, OTHER, SELFPAY ==
--- NOTE | ~2024-01-10 | CT_ITS ---
EXAMINATION: CT HEAD WITHOUT CONTRAST CT CERVICAL SPINE WITHOUT CONTRAST CLINICAL INFORMATION: Fall. COMPARISON: CT head and cervical spine from 04/10/2023. TECHNIQUE: Contiguous axial imaging was performed from the skull base to vertex without intravenous administration of contrast. Contiguous axial imaging was performed from the upper chest through the skull base without intravenous administration of contrast. Coronal and sagittal reformats were obtained at the acquisition workstation. This CT examination was performed using dose optimization techniques as appropriate, variously including the following: *Automated exposure control. *Adjustment of mA and/or kV according to patient size (this includes techniques or standardized protocols for targeted exams where dose is matched to indication/reason for exam; i.e. extremities or head). *Use of iterative reconstruction technique. DLP: 1078 mGy-cm FINDINGS: Head: There is no evidence of acute intracranial hemorrhage or edematous territorial infarction. Hannah-white matter differentiation is preserved. Scattered and partially confluent hypoattenuation in the periventricular and deep white matter are consistent with moderate microangiopathy. Proportional prominence of the ventricles and sulcal spaces without evidence of obstructive hydrocephalus. No abnormal mass effect or midline shift. No extra-axial fluid collections. No acute soft tissue or osseous abnormalities. Mild mucosal thickening of the paranasal sinuses. Mild rightward nasal septal deviation. The mastoid air cells and middle ear cavities are clear. Cervical Spine: Mildly motion degraded exam. The atlantooccipital and atlantoaxial articulations remain well aligned. Moderate degenerative arthropathy of the atlantodental articulation. Straightening of the normal cervical lordosis. Mild degenerative anterolisthesis of C3 on C4. Mild degenerative stepwise retrolistheses of C4-C7. Otherwise, there is anatomic alignment of the vertebral bodies and posterior elements. No evidence of acute fracture or subluxation. The vertebral body heights are maintained. Advanced degenerative disc disease from C4-T1. Moderate degenerative disc disease at all additional levels. Facet and uncovertebral joint arthropathy leads to osseous encroachment on the neural foramina from C2-T2. There is no prevertebral soft tissue swelling. The thyroid gland and remaining cervical soft tissues are within normal limits. The lung apices demonstrate no abnormalities. CT/CT cervical spine wo IV con IMPRESSION: 1. No evidence of acute intracranial hemorrhage or edematous territorial infarction. Moderate underlying microangiopathy and generalized cerebral volume loss. 2. No evidence of acute fracture or traumatic subluxation of the cervical spine. Moderate to advanced multilevel degenerative spondyloarthropathy of the cervical spine. Electronically signed by: Jose Luis Hill DO 01/10/2024 09:15 PM EDT RP
--- NOTE | 2024-01-10 19:23 | ED_ITS ---
HPI - Fall General Chief Complaint: Fall Stated Complaint: R EYE SWELLING FALL ETOH Time Seen by Provider: 01/10/24 19:15 Source: patient Mode of arrival: ambulatory Limitations: no limitations History of Present Illness ED Provider: darin JI Narrative: Patient alcoholic been drinking heavily lately feel depressed no suicidal today patient fell 2 times hitting his right side of the head to the ground no loss of consciousness no seizures patient is alert oriented x3 on arrival no other injuries Related Data Home Medications ?Medication ?Instructions ?Recorded ?Confirmed lisinopril 20 mg tablet 20 mg PO DAILY 07/09/20 07/23/23 omeprazole 20 mg capsule,delayed mg PO 03/05/22 07/23/23 release Previous Rx's ?Medication ?Instructions ?Recorded finasteride 5 mg tablet 5 mg PO DAILY 90 days #90 tabs 12/21/23 Allergies Allergy/AdvReac Type Severity Reaction Status Date / Time No Known Allergies Allergy Verified 01/10/24 19:27 Review of Systems 2 Review of Systems: Yes all other systems are reviewed and are negative PMFSH Past Medical History Medical History Cellulitis HTN (hypertension) Venous stasis ulcer of ankle Surgical History History of colonoscopy History of appendectomy Social History Social History Alcohol intake: current Alcohol intake frequency: 0-2 drinks per day Alcohol type: beer Smoked in Last 30 Days: Yes Use of substances other than those prescribed or required for medical reasons: No Substance Use Type: Marijuana Advance Directives: No Advance Directives Information Provided: No Physical Exam 2 Vital Signs: Vital Signs: Last Vital Signs Temp 98.6 F 01/10/24 22:31 Pulse 93 01/10/24 22:31 Resp 18 01/10/24 22:31 BP 157/92 H 01/10/24 22:31 Pulse Ox 97 01/10/24 22:31 O2 Del Method Room Air 01/10/24 22:31 BMI result Body Mass Index 21.7 Appearance: Alert. Oriented X3. No acute distress. etoh + Eyes: PERRLA, No Nystagmus ecchymosis right eyebrow ENT: Pharynx normal. Oral Mucosa moist Neck: Normal inspection. Neck supple. CVS: Normal heart rate and rhythm. Pulses normal. Respiratory: No respiratory distress. Equal air entry bilateral, no wheezing/rales/rhonchi Abdomen: Soft and nontender. Bowel sounds are present, no mass palpable, no CVA tenderness Skin: Skin warm and dry. Normal skin color. Normal skin turgor. Extremities: No lower extremity edema. No calf tenderness Neuro: Oriented X 3. No motor deficit. No sensory deficit.No cerebellar signs , cranial nerves II-XII intact Medications Administered Discontinued Medications Generic Name Dose Route Start Last Admin Trade Name Freq PRN Reason Stop Dose Admin Sodium Chloride 1,000 mls @ 999 mls/hr 01/10/24 19:19 01/10/24 20:19 Ns IV 01/10/24 20:19 Infused .Q1H1M ONE Infusion Medical Decision Making Medical Decision Making [facility] Narrative: Patient alcoholic comes here for frequent falls CT scan of head and C-spine negative for acute patient is very unsteady on ambulation will keep him for observation will get care team consultation for depression and alcohol use Admission/Observation Consideration of admission/observation: Escalation of care including admission/observation considered Lab Data [facility] Lab Attestation statement: I reviewed the patient's lab results. 01/10/24 19:59 01/10/24 19:59 Labs: Lab Results 01/10/24 01/10/24 Range/Units 19:59 20:25 WBC 7.8 (4.8-10.8) X10*3/uL RBC 3.51 L (4.60-5.80) X10*6/uL Hgb 12.0 L (14.0-18.0) g/dl Hct 33.5 L (42.0-52.0) % MCV 95.4 (80.0-98.0) fL MCH 34.2 H (27.0-33.0) pg MCHC 35.8 (31.0-36.0) g/dl RDW 13.8 (11.0-16.0) % Plt Count 314 (160-400) X10*3/uL MPV 8.1 L (9.4-12.4) fL Immature Gran % (Auto) 0.3 (0.0-0.4) % Neut % (Auto) 54.4 (45-73) % Lymph % (Auto) 25.8 (20-40) % [place] % (Auto) 15.0 H (2-11) % Eos % (Auto) 3.9 (0-4) % Baso % (Auto) 0.6 (0-2) % Lymph # (Auto) 2.0 (1.2-4.9) X10*3/uL [place] # (Auto) 1.2 (0.1-1.2) X10*3/uL Eos # (Auto) 0.3 (0.0-0.4) X10*3/uL Baso # (Auto) 0.1 (0.0-0.2) X10*3/uL Abs Immat Gran (auto) 0.02 (0.00-0.03) X10*3/uL Absolute Neuts (auto) 4.2 (2.0-8.3) x10*3/uL Absolute Nucleated RBC 0.000 (0.0-0.012) X10*3/uL Nucleated RBC % (auto) 0.0 (0.0-0.2) /100WBC Sodium 134 L (135-145) mmol/L Potassium 4.0 (3.3-5.1) mmol/L Chloride 100 (96-108) mmol/L Carbon Dioxide 26 (22-29) mmol/L Anion Gap 12 (12-20) BUN 4 L (9-16) mg/dL Creatinine 0.80 (0.5-1.4) mg/dL Estim Creat Clear Calc 90.8 Estimated GFR > 60 Random Glucose 96 (60-115) mg/dL Calcium 8.8 D (8.4-10.2) mg/dL Magnesium 2.0 (1.6-2.6) mg/dL Total Bilirubin 0.3 (0.0-1.0) mg/dL AST 37 (5-37) U/L ALT 22 (0-40) U/L Alkaline Phosphatase 79 (39-117) U/L Total Protein 6.9 (6.5-8.0) g/dL Albumin 4.0 (3.5-5.0) g/dL Urine Color Yellow Urine Appearance Clear Urine pH 5.5 (5.0-9.0) Ur Specific [place] <= 1.005 (1.005-1.025) Urine Protein Negative (Neg-Trace) mg/dL Urine Glucose (UA) Negative (Negative) mg/dL Urine Ketones Negative (Negative) mg/dL Urine Blood Negative (Negative) Urine Nitrite Negative (Negative) Ur Leukocyte Esterase Trace H (Negative) Urine RBC 0-2 (0-2) /HPF Urine WBC 0-5 (0-5) /HPF Ur Squamous Epith Cells 0-2 (0-2) /HPF Urine Bacteria 4+ (None Seen) Hyaline Casts 0-2 (0-2) /LPF Ethyl Alcohol 324 H* mg/dL COVID-19 (PARVIN) Negative (Negative) COVID-19 Clin Com See Note Discharge Plan Discharge Clinical Impression: Alcohol abuse Patient Disposition: Still a Patient Prescriptions: No Action finasteride 5 mg tablet 5 mg PO DAILY 90 Days Qty: 90 1RF lisinopril 20 mg tablet 20 mg PO DAILY omeprazole 20 mg capsule,delayed release(DR/EC) PO Print Language: [place]
[2024-01-10 19:24] VITALS: BP 164/101; PULSE 99; RESP 18; TEMP 36.6; O2SAT 97; BMI 21.7
[2024-01-10 20:00] VITALS: BP 145/87; PULSE 98; RESP 18; TEMP 36.7; O2SAT 97
[2024-01-10 20:05] LABS: MANUAL DIFF FLAG NO
[2024-01-10 20:06] LABS: Basophils Absolute Auto 0.1 X10*3/uL (0.0-0.2); Basophils Percent Auto 0.6 % (0-2); Eosinophils Absolute Auto 0.3 X10*3/uL (0.0-0.4); Eosinophils Percent Auto 3.9 % (0-4); Hematocrit 33.5 % (42.0-52.0); Imm Gran Abs Auto 0.02 X10*3/uL (0.00-0.03); Imm Gran Pct Auto 0.3 % (0.0-0.4); Lymphocytes Percent Auto 25.8 % (20-40); Mean Corpuscular HGB Conc 35.8 g/dl (31.0-36.0); Mean Corpuscular Hemoglobin 34.2 pg (27.0-33.0); Mean Corpuscular Volume 95.4 fL (80.0-98.0); Mean Platelet Volume 8.1 fL (9.4-12.4); Monocytes Absolute Auto 1.2 X10*3/uL (0.1-1.2); Neutrophils Absolute Auto 4.2 x10*3/uL (2.0-8.3); Neutrophils Percent Auto 54.4 % (45-73); Platelet Count 314 X10*3/uL (160-400); Red Blood Count 3.51 X10*6/uL (4.60-5.80); Red Cell Distribution Width 13.8 % (11.0-16.0); White Blood Count 7.8 X10*3/uL (4.8-10.8)
[2024-01-10] MEDS: 0.9 % Sodium Chloride 1,000 ML 999 ML IV (20:16)
--- NOTE | 2024-01-10 20:17 | PC.NURSE ---
Pt ca&ox3, no signs of distress. Pt denies pain at this time. Pt resting comfortably, watching tv. Pt medicated per mar. Plan of care ongoing.
--- NOTE | 2024-01-10 20:26 | MHC.EDTECH ---
S/O SRIKANTH ZAMBRANO [phone]
[2024-01-10 20:27] LABS: Alanine Aminotransferase 22 U/L (0-40); Alkaline Phosphatase 79 U/L (39-117); Anion Gap 12 (12-20); Aspartate Amino Transferase 37 U/L (5-37); Bilirubin Total 0.3 mg/dL (0.0-1.0); Blood Urea Nitrogen 4 mg/dL (9-16); COVID-19 Test Negative (Negative); Calcium 8.8 mg/dL (8.4-10.2); Carbon Dioxide 26 mmol/L (22-29); Chloride 100 mmol/L (96-108); Creatinine Clr Calc Pharmacy 90.8; Estimated Glomerular Filt Rate > 60; Ethanol 324 mg/dL; Glucose Random 96 mg/dL (60-115); IDNOW Serial# 58CA691E; Sodium 134 mmol/L (135-145); Total Protein 6.9 g/dL (6.5-8.0)
--- NOTE | 2024-01-10 20:29 | PC.NURSE ---
UA collected and sent. Pt requesed and given urinal. Plan of care ongoing.
[2024-01-10 20:34] LABS: Appearance Urine Clear; Color Urine Yellow; Glucose Urine UA Negative (Negative); Leukocyte Esterase Urine Trace (Negative); Nitrite Urine Negative (Negative); PH 5.5 (5.0-9.0); Specific Gravity - Urine <= 1.005 (1.005-1.025); UMIC TRIGGER UACC YES; Urine Blood Negative (Negative); Urine Ketones Negative (Negative); Urine Protein Negative (Neg-Trace)
[2024-01-10 20:50] LABS: Bacteria Urine 4+ (None Seen); Hyaline Casts Urine 0-2 /LPF (0-2); RBC Urine 0-2 /HPF (0-2); Squamous Epithelial Cell Urine 0-2 /HPF (0-2); WBC Urine 0-5 /HPF (0-5)
--- NOTE | 2024-01-10 21:05 | MHC.EDTECH ---
This tech draw blood, sent to lab, placed pt on counter sales representative. Call quan within reach.
[2024-01-10 22:31] VITALS: BP 157/92; PULSE 93; RESP 18; TEMP 37; O2SAT 97
--- NOTE | 2024-01-11 00:20 | PC.NURSE ---
Pt pulled IV line. Provider aware, ns d/c. Plan of care ongoing.
[2024-01-11 03:42] VITALS: BP 124/79; PULSE 92; RESP 16; O2SAT 96
[2024-01-11 05:52] VITALS: BP 129/70; PULSE 92; RESP 17; TEMP 36.7; O2SAT 97
[2024-01-11 08:00] VITALS: BP 134/74; PULSE 117; RESP 18; TEMP 36.7; O2SAT 97
[2024-01-11] MEDS: LORazepam 1 MG TABLET 2 MG PO (08:28)
[2024-01-11 10:09] VITALS: BP 134/74; PULSE 117; RESP 18; TEMP 36.7; O2SAT 97
== END 2024-01-11 10:18 | disposition home or self-care (01) ==
PROVIDERS: Internal Medicine; Emergency Provider Emergency Medicine Emergency Medical Services; PCP Internal Medicine
DX: S09.90XA Unspecified injury of head, initial encounter (principal); F10.129 Alcohol abuse with intoxication, unspecified; Y90.8 Blood alcohol level of 240 mg/100 ml or more; M54.2 Cervicalgia; R51.9 Headache, unspecified; W01.10XA Fall on same level from slipping, tripping and stumbling with subsequent striking against unspecified object, initial encounter; Y93.89 Activity, other specified; Y92.89 Other specified places as the place of occurrence of the external cause; Y99.8 Other external cause status; Z11.52 Encounter for screening for COVID-19; Z79.899 Other long term (current) drug therapy
CPT/HCPCS: 70450; 72125; 80053; 80307; 81001; 83735; 85025; 87635; 99285; S9485